=== PATIENT | male | born 1980 | race Caucasian/White ===

== ENCOUNTER 2016-03-13 10:49 | Emergency (ER) | payer OTHER ==
[~2016-03-13] VITALS: Ht 182.8 cm; Wt 86.2 kg
[~2016-03-13 10:49] MED LIST: CEPHALEXIN500 M1 PO
== END 2016-03-13 12:33 | disposition home or self-care (01) ==
LOC: ED 10:49
DX: R13.10 Dysphagia, unspecified (principal); Z79.899 Other long term (current) drug therapy